=== PATIENT | male | born 1945 | race Caucasian/White ===

== ENCOUNTER → 2017-03-03 | Day surgery (SDC) | payer MEDICARE ==
[~2017-03-03] MED LIST: AMLO5TAB2 PO; FENT1PAT17 TD; HYDR-963 PO; IV RINGERS,LACTATED 1000ML 1,000 ML IV ONE; LEVO150T PO; LIDOCAINE 2% PF Vial for OR 5 ML VIAL. ONE; PROPOFOL 40 ML IV ONE
[2017-03-03 12:40] VITALS: BP 134/78
--- NOTE | 2017-03-06 10:57 | PATHOLOGY ---
PATHOLOGY REPORT * * * * * * * * FINAL DIAGNOSIS: A. Rectal biopsies, rectal polyps: - Tubular adenomas. B. Colon biopsy, sigmoid polyp: - Hyperplastic polyp. (JPM:stephany; 03/06/2017) COMMENT: Sections of the rectal biopsies reveal tubular adenomas showing no high-grade dysplasia or evidence of malignancy. Sections of the sigmoid colon biopsy reveal a hyperplastic polyp showing coagulation artifact. There is no high-grade dysplasia or evidence of malignancy. (JPM:stephany; 03/06/2017) REPORT ELECTRONICALLY SIGNED BY: Isiah Ty M.D. DATE/TIME: 03/06/2017 10:56 * * * * * * * * GROSS PATHOLOGY: A. Received in formalin labeled "Leah Moctezuma, rectal polyps/BX's," is a 0.8 x 0.7 x 0.9 cm polypoid piece of persaud soft tissue. The margin is inked and the tissue is sectioned perpendicular to the margin and submitted in its entirety in cassette A1. B. Received in formalin labeled "Leah Moctezuma, sigmoid polyp," is a segment of persaud soft tissue measuring 0.6 cm in maximum dimension. The specimen is submitted entirely in cassette B1. (TSD; 03/03/2017) INITIAL CPT CODE(S): A; 36880 B; 32057 Professional services performed by [facility] [place] [address] Technical services performed by [facility] at [address] [place] [address] [address] [address]. SPECIMEN(S) RECEIVED: A.Rectal polyps/biopsies B.Sigmoid polyp CLINICAL HISTORY: Diverticulitis PATIENT: LEAH MOCTEZUMA Muriel /AGE: 207/13/1945 (Age: 71) PATIENT #: [id number] ALT CASE #: SPECIMEN COLLECTION DATE: 03/03/2017 SPECIMEN RECEIVED DATE: 03/03/2017 [facility] [place] [address] - PHONE: [phone] * * * END OF REPORT * * *
== END | disposition home or self-care (01) ==
LOC: SURG 10:57
PROVIDERS: ATTEND Internal Medicine Gastroenterology
DX: Z09 Encounter for follow-up examination after completed treatment for conditions other than malignant neoplasm (principal); Z86.010 Personal history of colon polyps; D12.5 Benign neoplasm of sigmoid colon; K64.0 First degree hemorrhoids; K62.1 Rectal polyp; K57.30 Diverticulosis of large intestine without perforation or abscess without bleeding; I10 Essential (primary) hypertension; E03.9 Hypothyroidism, unspecified; F17.200 Nicotine dependence, unspecified, uncomplicated; Z87.39 Personal history of other diseases of the musculoskeletal system and connective tissue; Z90.49 Acquired absence of other specified parts of digestive tract; Z86.39 Personal history of other endocrine, nutritional and metabolic disease
CPT/HCPCS: 45385; 88305; J2704; J2001